=== PATIENT | female | born 1940 | race Caucasian/White ===

== ENCOUNTER 2020-05-11 23:10 | Emergency (ER) | payer MEDICARE ==
[2020-05-12 00:42] LABS: RED BLOOD COUNT 4.57 M/UL (4.00-5.10); WHITE BLOOD COUNT 6.7 K/UL (4.5-11.0)
[2020-05-12 01:08] LABS: BUN/CREATININE RATIO 16 (0-10)
== END 2020-05-12 02:00 | disposition home or self-care (01) ==
LOC: ER1 23:10
PROVIDERS: Physician Assistant
DX: I10 Essential (primary) hypertension (principal); Z79.899 Other long term (current) drug therapy
CPT/HCPCS: 71045; 80053; 82550; 82553; 83874; 84484; 85025; 93005; 99284